=== PATIENT | female | born 1970 | race Caucasian/White ===

== ENCOUNTER → 2021-04-12 | Outpatient (CLI) | payer OTHER ==
[2021-04-12 13:10] LABS: HEMOGLOBIN 13.8 gm/dl (12.3-15.3); RED BLOOD COUNT 4.51 M/UL (4.00-5.10); WHITE BLOOD COUNT 12.7 K/UL (4.5-11.0)
[2021-04-12 13:36] LABS: BUN/CREATININE RATIO 14 (0-10)
== END ==
LOC: LAB 12:10
PROVIDERS: Nurse Practitioner Family
DX: E11.40 Type 2 diabetes mellitus with diabetic neuropathy, unspecified (principal); I10 Essential (primary) hypertension; R07.2 Precordial pain
CPT/HCPCS: 36415; 71046; 80053; 80061; 83036; 84443; 85007; 85027; 93005